=== PATIENT | female | born 1995 | race African-American/Black ===

== ENCOUNTER 2016-12-03 17:06 | Emergency (ER) | payer MEDICAID ==
[~2016-12-03] VITALS: Ht 167.6 cm; Wt 104.3 kg
[2016-12-03 17:06] VITALS: BP_SYST 135
--- NOTE | 2016-12-03 17:06 | NUR ---
Pt placed to ER bed 06. Report given to BRITTA Murphy.
--- NOTE | 2016-12-03 17:11 | NUR ---
Patient reports that she has been having pelvic pain with burning during urination and is having an outbreak of herpes. She reports that she saw one herpe lesion yesterday. Denies any pain. No other complaints/injuries per patient or as noted.
--- NOTE | 2016-12-03 17:11 | NUR ---
Dr. Lund at bedside.
[2016-12-03 17:31] LABS: COLOR,URINE YELLOW (YELLOW); GLUCOSE,URINE NEGATIVE (NEGATIVE); KETONES,URINE NEGATIVE (NEGATIVE); NITRITE, URINE NEGATIVE (NEGATIVE); PROTEIN URINE 1+ (NEGATIVE)
[2016-12-03 17:44] LABS: BLOOD, URINE TRACE (NEGATIVE)
[2016-12-03 17:45] LABS: BILIRUBIN,URINE NEGATIVE (NEGATIVE); CLARITY/URINE HAZY (CLEAR); LEUKOCYTE ESTERASE ,URINE TRACE (NEGATIVE)
[2016-12-03 17:46] LABS: BACTERIA,URINE FEW /HPF (None Seen); MUCUS,URINE 1+ /LPF (None Seen); RBC,URINE 0-3 /HPF (0-3); YEAST,URINE Few /HPF (None Seen)
--- NOTE | 2016-12-03 18:08 | NUR ---
Patient given written and verbal discharge instructions and verbalizes understanding. ER MD discussed with patient the results and treatment provided. Patient in stable condition. ID arm band removed. Rx of Acyclovir and macrobid given. Patient educated on pain management and to follow up with PMD in 2 days. Pain Scale 0/10 Opportunity for questions provided and answered.
== END 2016-12-03 18:08 | disposition home or self-care (01) ==
LOC: SED 17:06
DX: A60.00 Herpesviral infection of urogenital system, unspecified (principal); N39.0 Urinary tract infection, site not specified
CPT/HCPCS: 81000-TC; 99283

== ENCOUNTER 2018-07-03 08:43 | Emergency (ER) | payer MEDICAID ==
[~2018-07-03] VITALS: Ht 167.6 cm; Wt 86.2 kg
[2018-07-03 08:43] VITALS: BP_SYST 119
--- NOTE | 2018-07-03 08:43 | NUR ---
BROUGHT BACK TO BED #7 AND TRIAGED. REPORT GIVEN TO JEFFRY
--- NOTE | 2018-07-03 08:48 | NUR ---
Marti byrnes in [facility] - 07/03/18 at 0924 by [email or web address] Placed in room 7.
[2018-07-03] MEDS ORDERED: NACL 0.9% 1,000 ML IV ONE (08:50)
--- NOTE | 2018-07-03 08:50 | NUR ---
Pt presents to ER c/o nausea, vomiting, abdominal pain 8/10 on pain scale x 3 days. Pt reports hx of gastric reflux which she thought was causing her symptoms; however symptoms have not resolved after taking Nexium. Pt reports she is currently . Upon arrival to ER, pt denies chest pain or sob. Pt AOX4, speaking full sentences, ambulatory. Pt smells of marijuana but when asked if she smoked recently she denies. Pt also denies drinking ETOH.
--- NOTE | 2018-07-03 08:52 | NUR ---
ER Dr. Plummer at bedside examining patient.
--- NOTE | 2018-07-03 08:55 | NUR ---
# 20 gauge angiocath placed to LAC. Use of asceptic technique. Opsite placed over site. Blood return noted. Blood for lab drawn from site. Flushed with 10 cc of normal saline. No evidence of infiltration noted. Patient tolerated well.
[2018-07-03] MEDS ORDERED: ONDANSETRON HCL 4 MG/2 ML VIAL IVP ONE (09:00)
[2018-07-03] MEDS ORDERED: MORPHINE 4 MG/ML INJ. SYRINGE IVP ONE (09:00)
--- NOTE | 2018-07-03 09:19 | NUR ---
Pt medicated as ordered by ER Dr. Plummer. Pt tolerated well; will continue to monitor.
[2018-07-03 09:22] LABS: BASOPHILS # (AUTO) 0.1 K/uL (0.0-0.2); BASOPHILS % (AUTO) 0.5 % (0.0-2.0); EOSINOPHILS % (AUTO) 0.3 % (0.0-4.0); HEMATOCRIT 37.7 % (36-48); HEMOGLOBIN 12.3 g/dL (12.0-16.0); LYMPHOCYTES % (AUTO) 7.6 % (20.5-51.5); MEAN CORPUSCULAR HEMOGLOBIN 26 pg (27-31); MEAN CORPUSCULAR HGB CONC 33 % (32-36); MEAN CORPUSCULAR VOLUME 78 fL (79.0-98.0); MONOCYTES # (AUTO) 0.5 K/uL (0.0-1.0); MONOCYTES % (AUTO) 3.7 % (1.7-9.3); NEUTROPHILS # (AUTO) 11.7 K/uL (1.8-7.7); NEUTROPHILS % (AUTO) 87.9 % (40.0-70.0); PLATELET COUNT (AUTO) 281 K/uL (130-430); RED BLOOD CELL COUNT(AUTO) 4.82 MIL/uL (4.2-6.2); WHITE BLOOD COUNT (AUTO) 13.3 K/uL (4.8-10.8)
[2018-07-03 09:31] LABS: ANION GAP 11 (5-15); CALCIUM 9.1 mg/dL (8.4-11.0); CHLORIDE 101 mmol/L (98-107); CREATININE 0.71 mg/dL (0.55-1.30); GLUCOSE 109 mg/dL (70-99); POTASSIUM 3.6 mmol/L (3.5-5.1); SODIUM SERUM 138 mmol/L (136-145); UREA NITROGEN, BLOOD 10 mg/dL (8-21)
[2018-07-03 09:32] LABS: GFR AFRICAN AMERICAN 131 mL/min (>90)
[2018-07-03 09:34] LABS: PROTHROMBIN TIME 10.3 SECS (9.5-12.5)
[2018-07-03 09:51] LABS: BILIRUBIN,URINE NEGATIVE (NEGATIVE); CLARITY/URINE CLEAR (CLEAR); COLOR,URINE YELLOW (YELLOW); GLUCOSE,URINE NEGATIVE (NEGATIVE); KETONES,URINE TRACE (NEGATIVE); LEUKOCYTE ESTERASE ,URINE 1+ (NEGATIVE); NITRITE, URINE NEGATIVE (NEGATIVE); PROTEIN URINE TRACE (NEGATIVE); UROBILINOGEN,URINE 0.2 (0.2-1.0)
[2018-07-03 09:55] LABS: BLOOD, URINE TRACE (NEGATIVE)
[2018-07-03 10:03] LABS: BARBITURATE, URINE NEGATIVE (NEG <=200); BENZODIAZEPINE, URINE NEGATIVE (NEG <=150); CANNABINOID, URINE POSITIVE (NEG <=50); COCAINE, URINE NEGATIVE (NEG <=150); METHAMPHETAMINES SCREEN,URINE NEGATIVE (NEG <=500); OPIATE, URINE NEGATIVE (NEG <=100); PHENCYCLIDINE SCREEN,URINE NEGATIVE (NEG <=25); UR TRICYCLIC ANTIDEPRESSANTS NEGATIVE (NEG <=300); URINE AMPHETAMINE NEGATIVE (NEG <=500); URINE METHADONE NEGATIVE (NEG <=200); URINE OXYCODONE SCREEN NEGATIVE (NEG <=100); URINE PROPOXYPHENE SCREEN NEGATIVE (NEG <=300)
[2018-07-03 10:08] LABS: BACTERIA,URINE FEW /HPF (None Seen); MUCUS,URINE 1+ /LPF (None Seen)
[2018-07-03 10:12] LABS: TOTAL BILIRUBIN 0.3 mg/dL (0.0-1.0)
[2018-07-03 10:13] LABS: ALANINE AMINOTRANSFERASE 18 U/L (12-78); ALBUMIN 3.9 g/dL (3.4-4.8); ALCOHOL, BLOOD < 3 mg/dL (<10); AMYLASE 39 U/L (0-100); ASPARTATE AMINOTRANSFERASE 11 U/L (10-37); HCG,QUANTITATIVE 19039 mIU/ML (0-6); LIPASE 122 U/L (73-393)
--- NOTE | 2018-07-03 10:25 | NUR ---
Pt reports pain level 5/10 at this time and still c/o nausea. Dr. Plummer informed of situation.
[2018-07-03 11:55] VITALS: BP_SYST 121
--- NOTE | 2018-07-03 11:55 | NUR ---
Patient given written and verbal discharge instructions and verbalizes understanding. ER MD discussed with patient the results and treatment provided. Patient in stable condition. ID arm band removed. IV catheter removed intact and dressing applied, no active bleeding. Rx of Zofran, Macrobid, Tylenol given. Patient educated on pain management and to follow up with PMD. Pain Scale 3/10. Opportunity for questions provided and answered. Medication side effect fact sheet provided.
== END 2018-07-03 11:55 | disposition home or self-care (01) ==
LOC: SED 08:43
DX: O21.0 Mild hyperemesis gravidarum (principal); O23.41 Unspecified infection of urinary tract in pregnancy, first trimester; O46.91 Antepartum hemorrhage, unspecified, first trimester; O26.891 Other specified pregnancy related conditions, first trimester; F12.90 Cannabis use, unspecified, uncomplicated; Z3A.01 Less than 8 weeks gestation of pregnancy
CPT/HCPCS: 36415; 76805; 80053; 80307; 81000; 81025; 82150; 83605; 83690; 84702; 85025; 85610; 85730; 86900; 86901; 87040; 87086; 96361; 96374; 96375; 99284; G0482; J2270; J2405

== ENCOUNTER 2018-10-11 17:13 | Emergency (ER) | payer MEDICAID ==
[~2018-10-11] VITALS: Ht 170.2 cm; Wt 97.5 kg
[2018-10-11 17:21] VITALS: BP_SYST 106
[2018-10-11 19:03] LABS: INFLUENZA A&B ANTIGEN SCREEN NEGATIVE FOR A & B (NEGATIVE)
[2018-10-11 19:06] LABS: STREPTOCOCCUS A SCREEN (RAPID) POSITIVE (NEGATIVE)
[2018-10-11] MEDS ORDERED: IBUPROFEN 800 MG TABLET PO ONE (20:00)
[2018-10-11] MEDS ORDERED: AZITHROMYCIN 250 MG TABLET PO ONE (20:00)
[2018-10-11 20:10] VITALS: BP_SYST 106
== END 2018-10-11 20:10 | disposition home or self-care (01) ==
LOC: SED 17:13
DX: J02.0 Streptococcal pharyngitis (principal); R10.9 Unspecified abdominal pain; R68.83 Chills (without fever); Z88.0 Allergy status to penicillin
CPT/HCPCS: 86403; 86710; 99283; Q0144; 36415

== ENCOUNTER 2019-04-08 12:59 | Emergency (ER) | payer MEDICAID ==
[~2019-04-08] VITALS: Ht 167.6 cm; Wt 95.3 kg
[2019-04-08 13:00] VITALS: BP_SYST 123
[2019-04-08] MEDS ORDERED: NACL 0.9% 1,000 ML IV ONE (13:45)
[2019-04-08 14:06] LABS: BASOPHILS # (AUTO) 0.1 K/uL (0.0-0.2); BASOPHILS % (AUTO) 0.5 % (0.0-2.0); EOSINOPHILS # (AUTO) 0.1 K/uL (0.0-0.4); EOSINOPHILS % (AUTO) 0.4 % (0.0-4.0); HEMATOCRIT 37.6 % (36-48); HEMOGLOBIN 12.2 g/dL (12.0-16.0); LYMPHOCYTES # (AUTO) 1.6 K/uL (1.0-5.5); LYMPHOCYTES % (AUTO) 12.8 % (20.5-51.5); MEAN CORPUSCULAR HEMOGLOBIN 28 pg (27-31); MEAN CORPUSCULAR HGB CONC 33 % (32-36); MEAN CORPUSCULAR VOLUME 87 fL (79.0-98.0); MONOCYTES % (AUTO) 8.1 % (1.7-9.3); NEUTROPHILS # (AUTO) 9.8 K/uL (1.8-7.7); NEUTROPHILS % (AUTO) 78.2 % (40.0-70.0); PLATELET COUNT (AUTO) 212 K/uL (130-430); RED BLOOD CELL COUNT(AUTO) 4.33 MIL/uL (4.2-6.2); RED CELL DISTRIBUTION WIDTH 16.2 % (9.0-15.0); WHITE BLOOD COUNT (AUTO) 12.5 K/uL (4.8-10.8)
[2019-04-08 14:17] LABS: CALCIUM 8.7 mg/dL (8.4-11.0); CREATININE 0.6 mg/dL (0.55-1.30); POTASSIUM 3.5 mmol/L (3.5-5.1)
[2019-04-08 14:23] LABS: ALBUMIN 3.5 g/dL (3.4-4.8); TOTAL BILIRUBIN 0.3 mg/dL (0.0-1.0)
[2019-04-08 15:45] VITALS: BP_SYST 126
== END 2019-04-08 15:45 | disposition home or self-care (01) ==
LOC: SED 12:59
DX: O20.0 Threatened abortion (principal); Z3A.01 Less than 8 weeks gestation of pregnancy; Z88.0 Allergy status to penicillin
CPT/HCPCS: 36415; 76801; 80053; 81002; 81025; 84702; 85025; 96360; 99284; J7030

== ENCOUNTER 2019-05-04 10:30 | Emergency (ER) | payer MEDICAID ==
[~2019-05-04] VITALS: Ht 167.6 cm; Wt 95.3 kg
[2019-05-04 11:05] VITALS: BP_SYST 129
--- NOTE | 2019-05-04 11:27 | NUR ---
Patient to ER bed 4 to gown for evaluation. Side rails up. Report given to BRITTA Cardona.
--- NOTE | 2019-05-04 11:30 | NUR ---
Patient is awake, alert, and oriented x4. Patient reports nausea, vomiting, diarrhea, urinary urgency, headache with light sensitivity x 3-4 days. She states she is 12 weeks and unable to keep anyhing down and has been hydrating with pedialyte.
[2019-05-04] MEDS ORDERED: ONDANSETRON HCL 4 MG/2 ML VIAL IVP ONE (12:15)
[2019-05-04] MEDS ORDERED: NACL 0.9% 1,000 ML IV ONE (12:15)
--- NOTE | 2019-05-04 12:15 | NUR ---
ER Dr. Gonzalez at bedside examining patient.
[2019-05-04 12:39] LABS: CLARITY/URINE SLIGHTLY CLOUDY (CLEAR); COLOR,URINE YELLOW (YELLOW)
[2019-05-04 12:40] LABS: BILIRUBIN,URINE NEGATIVE (NEGATIVE); BLOOD, URINE 1+ (NEGATIVE); GLUCOSE,URINE NEGATIVE (NEGATIVE); KETONES,URINE NEGATIVE (NEGATIVE); LEUKOCYTE ESTERASE ,URINE NEGATIVE (NEGATIVE); NITRITE, URINE NEGATIVE (NEGATIVE); PROTEIN URINE NEGATIVE (NEGATIVE); UROBILINOGEN,URINE 0.2 (0.2-1.0)
--- NOTE | 2019-05-04 12:45 | NUR ---
Patient transported to radiology via wheelchair, accompanied by electronics technician apprentice.
[2019-05-04 13:05] LABS: BACTERIA,URINE FEW /HPF (None Seen)
--- NOTE | 2019-05-04 13:15 | NUR ---
Returned from radiology, back to [facility].
--- NOTE | 2019-05-04 13:15 | NUR ---
Marti byrnes in ED - 05/04/19 at 1325 by [email or web address] Returned from radiology, back to [facility].
[2019-05-04 13:32] LABS: BASOPHILS # (AUTO) 0.1 K/uL (0.0-0.2); BASOPHILS % (AUTO) 0.6 % (0.0-2.0); EOSINOPHILS % (AUTO) 0.2 % (0.0-4.0); HEMATOCRIT 37.1 % (36-48); HEMOGLOBIN 12.4 g/dL (12.0-16.0); LYMPHOCYTES # (AUTO) 1.1 K/uL (1.0-5.5); LYMPHOCYTES % (AUTO) 8.4 % (20.5-51.5); MEAN CORPUSCULAR HEMOGLOBIN 29 pg (27-31); MEAN CORPUSCULAR HGB CONC 33 % (32-36); MEAN CORPUSCULAR VOLUME 87 fL (79.0-98.0); MONOCYTES % (AUTO) 7.4 % (1.7-9.3); NEUTROPHILS # (AUTO) 10.8 K/uL (1.8-7.7); NEUTROPHILS % (AUTO) 83.4 % (40.0-70.0); PLATELET COUNT (AUTO) 206 K/uL (130-430); RED BLOOD CELL COUNT(AUTO) 4.26 MIL/uL (4.2-6.2); RED CELL DISTRIBUTION WIDTH 16.3 % (9.0-15.0)
[2019-05-04 13:45] LABS: CALCIUM 9.4 mg/dL (8.4-11.0); CREATININE 0.57 mg/dL (0.55-1.30); POTASSIUM 3.5 mmol/L (3.5-5.1)
[2019-05-04 13:51] LABS: ALBUMIN 3.7 g/dL (3.4-4.8); TOTAL BILIRUBIN 0.3 mg/dL (0.0-1.0)
--- NOTE | 2019-05-04 15:56 | NUR ---
Patient given written and verbal discharge instructions and verbalizes understanding. ER MD Gonzalez discussed with patient the results and treatment provided. Patient in stable condition. ID arm band removed. IV catheter removed intact and dressing applied, no active bleeding. No Rx given. Patient educated on pain management and to follow up with PMD. Pain Scale 0. Opportunity for questions provided and answered. Medication side effect fact sheet provided.
[2019-05-04 15:57] VITALS: BP_SYST 131
== END 2019-05-04 15:57 | disposition home or self-care (01) ==
LOC: SED 10:30
DX: O03.9 Complete or unspecified spontaneous abortion without complication (principal); O23.41 Unspecified infection of urinary tract in pregnancy, first trimester; O26.891 Other specified pregnancy related conditions, first trimester; K52.9 Noninfective gastroenteritis and colitis, unspecified; Z88.0 Allergy status to penicillin; Z3A.12 12 weeks gestation of pregnancy
CPT/HCPCS: 36415; 76801; 80053; 81000; 83690; 84702; 85025; 96361; 96374; 99284; J2405; J7030

== ENCOUNTER 2019-12-07 20:51 | Emergency (ER) | payer MEDICAID ==
[~2019-12-07] VITALS: Ht 167.6 cm; Wt 95.3 kg
[2019-12-07 20:55] VITALS: BP_SYST 152
[2019-12-07] MEDS ORDERED: ONDANSETRON HCL 4 MG/2 ML VIAL IVP ONE (21:15)
[2019-12-07] MEDS ORDERED: NACL 0.9% 1,000 ML IV ONE (21:15)
[2019-12-07 21:34] LABS: BASOPHILS # (AUTO) 0.1 K/uL (0.0-0.2); BASOPHILS % (AUTO) 0.5 % (0.0-2.0); EOSINOPHILS % (AUTO) 0.2 % (0.0-4.0); HEMATOCRIT 38.4 % (36-48); HEMOGLOBIN 12.4 g/dL (12.0-16.0); LYMPHOCYTES # (AUTO) 1.6 K/uL (1.0-5.5); LYMPHOCYTES % (AUTO) 10.1 % (20.5-51.5); MEAN CORPUSCULAR HEMOGLOBIN 28 pg (27-31); MEAN CORPUSCULAR HGB CONC 32 % (32-36); MEAN CORPUSCULAR VOLUME 87 fL (79.0-98.0); MONOCYTES # (AUTO) 0.8 K/uL (0.0-1.0); MONOCYTES % (AUTO) 5.2 % (1.7-9.3); NEUTROPHILS # (AUTO) 13.1 K/uL (1.8-7.7); PLATELET COUNT (AUTO) 275 K/uL (130-430); RED BLOOD CELL COUNT(AUTO) 4.41 MIL/uL (4.2-6.2); RED CELL DISTRIBUTION WIDTH 15.4 % (9.0-15.0); WHITE BLOOD COUNT (AUTO) 15.6 K/uL (4.8-10.8)
[2019-12-07 21:52] LABS: CALCIUM 8.6 mg/dL (8.4-11.0); CREATININE 0.91 mg/dL (0.55-1.30); POTASSIUM 3.4 mmol/L (3.5-5.1)
[2019-12-07 22:03] LABS: ALBUMIN 4.2 g/dL (3.4-4.8); TOTAL BILIRUBIN 0.3 mg/dL (0.0-1.0)
[2019-12-07] MEDS ORDERED: METOCLOPRAMIDE HCL 10 MG/2 ML VIAL IVP ONE (23:00)
[2019-12-07] MEDS ORDERED: KETOROLAC TROMETHAMINE 30 MG VIAL IVP ONE (23:00)
[2019-12-07] MEDS ORDERED: PROCHLORPERAZINE EDISYLATE 10 MG/2 ML VIAL IVP ONE (23:45)
[2019-12-08 00:05] VITALS: BP_SYST 122
== END 2019-12-08 00:05 | disposition home or self-care (01) ==
LOC: SED 20:51
DX: K52.9 Noninfective gastroenteritis and colitis, unspecified (principal); R11.2 Nausea with vomiting, unspecified; Z88.0 Allergy status to penicillin
CPT/HCPCS: 36415; 74176; 80053; 83690; 84702; 85025; 96361; 96374; 96375; 99285; J0780; J1885; J2405; J2765; J7030

== ENCOUNTER 2019-12-08 06:27 | Emergency (ER) | payer MEDICAID ==
[~2019-12-08] VITALS: Ht 167.6 cm; Wt 95.3 kg
[2019-12-08 06:27] VITALS: BP_SYST 128
[2019-12-08] MEDS ORDERED: ONDANSETRON HCL 4 MG/2 ML VIAL IVP ONE (07:00)
[2019-12-08] MEDS ORDERED: MORPHINE 4 MG/ML INJ. SYRINGE IVP ONE ×2 (07:00→10:00)
[2019-12-08] MEDS ORDERED: NACL 0.9% 1,000 ML IV ONE (07:00)
[2019-12-08 10:00] VITALS: BP_SYST 108
== END 2019-12-08 10:00 | disposition short-term general hospital (02) ==
LOC: SED 06:27
DX: Z03.818 Encounter for observation for suspected exposure to other biological agents ruled out (principal); K52.9 Noninfective gastroenteritis and colitis, unspecified; F12.90 Cannabis use, unspecified, uncomplicated; Z88.0 Allergy status to penicillin
CPT/HCPCS: 96361; 96374; 96375; 96376; 99285; J2270; J2405; J7030; U0003

== ENCOUNTER 2020-03-27 19:25 | Emergency (ER) | payer MEDICAID ==
[~2020-03-27] VITALS: Ht 172.7 cm; Wt 86.2 kg
--- NOTE | 2020-03-27 19:28 | NUR ---
Patient to ER bed 3 to gown for evaluation. Side rails up.
[2020-03-27 19:30] VITALS: BP_SYST 138
--- NOTE | 2020-03-27 19:41 | NUR ---
Pt BIBA from Home C/O N/V x 2 with acute epigastric abd pain 8 since 1400 today. Has MRI 2 weeks ago confirmed gallstone. VSS no s/s of acute distress No other complaints noted at this time Resting on [employer] rails up
--- NOTE | 2020-03-27 20:01 | NUR ---
Dr. Gonzalez bedside for pt eval
[2020-03-27] MEDS: MORPHINE 2 MG/ML INJ. SYRINGE IVP ONE (20:29)
[2020-03-27] MEDS: ONDANSETRON HCL 4 MG/2 ML VIAL IVP ONE ×2 (20:29→22:29)
[2020-03-27 20:36] LABS: BASOPHILS # (AUTO) 0.1 K/uL (0.0-0.2); BASOPHILS % (AUTO) 0.4 % (0.0-2.0); HEMOGLOBIN 12.8 g/dL (12.0-16.0); LYMPHOCYTES # (AUTO) 0.9 K/uL (1.0-5.5); LYMPHOCYTES % (AUTO) 5.6 % (20.5-51.5); MEAN CORPUSCULAR HEMOGLOBIN 29 pg (27-31); MEAN CORPUSCULAR HGB CONC 33 % (32-36); MEAN CORPUSCULAR VOLUME 87 fL (79.0-98.0); MONOCYTES # (AUTO) 0.4 K/uL (0.0-1.0); MONOCYTES % (AUTO) 2.3 % (1.7-9.3); NEUTROPHILS % (AUTO) 91.7 % (40.0-70.0); PLATELET COUNT (AUTO) 279 K/uL (130-430); RED BLOOD CELL COUNT(AUTO) 4.48 MIL/uL (4.2-6.2); RED CELL DISTRIBUTION WIDTH 16.7 % (9.0-15.0); WHITE BLOOD COUNT (AUTO) 16.4 K/uL (4.8-10.8)
[2020-03-27 20:45] LABS: CREATININE 0.8 mg/dL (0.55-1.30); POTASSIUM 3.6 mmol/L (3.5-5.1)
--- NOTE | 2020-03-27 20:46 | NUR ---
Radiology / Portable US Study bedside, pt in stable condition
[2020-03-27 20:48] LABS: BILIRUBIN,URINE NEGATIVE (NEGATIVE); BLOOD, URINE NEGATIVE (NEGATIVE); COLOR,URINE YELLOW (YELLOW); GLUCOSE,URINE NEGATIVE (NEGATIVE); KETONES,URINE 1+ (NEGATIVE); LEUKOCYTE ESTERASE ,URINE NEGATIVE (NEGATIVE); NITRITE, URINE NEGATIVE (NEGATIVE); PROTEIN URINE NEGATIVE (NEGATIVE); UROBILINOGEN,URINE 0.2 (0.2-1.0)
[2020-03-27 20:50] LABS: ALBUMIN 4.4 g/dL (3.4-4.8); TOTAL BILIRUBIN 0.2 mg/dL (0.0-1.0)
[2020-03-27 20:54] LABS: CLARITY/URINE HAZY (CLEAR)
[2020-03-27 20:56] LABS: BACTERIA,URINE FEW /HPF (None Seen); MUCUS,URINE None Seen /LPF (None Seen); RBC,URINE NONE SEEN /HPF (0-3); URINE AMORPHOUS PHOSPHATES 3+ /HPF (None Seen); WBC,URINE 0-3 /HPF (0-3)
--- NOTE | 2020-03-27 21:16 | NUR ---
Portable US Study complete, well tolerated
[2020-03-27] MEDS ORDERED: ONDANSETRON HCL 4 MG/2 ML VIAL IVP PRN (22:15)
[2020-03-27] MEDS ORDERED: MORPHINE 4 MG/ML INJ. SYRINGE IVP PRN (22:15)
[2020-03-27] MEDS ORDERED: MORPHINE 2 MG/ML INJ. SYRINGE IVP PRN (22:15)
[2020-03-27] MEDS: MORPHINE 4 MG/ML INJ. SYRINGE IVP ONE (22:28)
--- NOTE | 2020-03-27 22:31 | NUR ---
VSS no s/s of acute distress Resting on gurney rails up
[2020-03-27] MEDS ORDERED: D5/0.45 NS 1,000 ML IV SCH (23:00)
--- NOTE | 2020-03-28 | NUR ---
Pt remains in stable condition, still feeling a bit N/V, Dr. Gonzalez aware
--- NOTE | 2020-03-28 00:51 | NUR ---
Dr. Gonzalez bedside for pt update
[2020-03-28 01:07] VITALS: BP_SYST 138
--- NOTE | 2020-03-28 01:07 | NUR ---
Patient to be transferred to [facility]. Is being transferred due to higher level of care. Receiving facility has accepting physician and available space. ER physician has signed transfer form. Patient or responsible libertarian has agreed to transfer and signed form. Patient belongings inventoried and will be sent with patient. Copy of nursing notes, lab reports, EKG, Physicians Orders and X-rays to be sent with patient. Report called to Geo at receiving facility. Receiving physician is Dr. Flores. [facility] ambulance service has been called for transfer.
[2020-03-28] MEDS: MORPHINE 4 MG/ML INJ. SYRINGE IVP ONE (01:21)
[2020-03-28] MEDS: ONDANSETRON HCL 4 MG/2 ML VIAL IVP ONE (01:22)
== END 2020-03-28 01:07 | disposition short-term general hospital (02) ==
LOC: SED 19:25
DX: K80.20 Calculus of gallbladder without cholecystitis without obstruction (principal); R10.9 Unspecified abdominal pain; Z88.0 Allergy status to penicillin
CPT/HCPCS: 36415; 76700; 80053; 81000; 81025; 82150; 83690; 85025; 96374; 96375; 96376; 99285; J2270 ×3; J2405 ×2

== ENCOUNTER 2020-03-30 14:38 | Emergency (ER) | payer MEDICAID ==
[~2020-03-30] VITALS: Ht 172.7 cm; Wt 86.2 kg
[2020-03-30 14:38] VITALS: BP_SYST 139
--- NOTE | 2020-03-30 14:38 | NUR ---
Patient to ER bed 2 to gown for evaluation. Side rails up. Report given to BRITTA Plata.
--- NOTE | 2020-03-30 14:42 | NUR ---
Patient arrived in the ED c/o abdominal pain, nausea and vomiting for the last 5 days. Denied any chest pain or shortness of breath. Denied any fevers and chills. Patient is alert and oriented x4, respirations even and unlabored, speaking in full sentences, and ambulating with a steady gait. VSS, pain level 10/10. Informed of the approximate wait time. Instructed to notify ED staff for any changes in condition or worsening of symptoms while waiting to be seen by an ED provider. Patient verbalized understanding.
--- NOTE | 2020-03-30 14:45 | NUR ---
ER Dr. Fox at bedside examining patient.
[2020-03-30] MEDS ORDERED: CIPR-260 PO (14:52)
[2020-03-30] MEDS ORDERED: ONDA4TAB11 SL (14:52)
[2020-03-30] MEDS ORDERED: ACET325T53 PO (14:52)
[2020-03-30] MEDS ORDERED: NACL 0.9% 1,000 ML IV ONE (14:55)
--- NOTE | 2020-03-30 14:55 | NUR ---
Medication reconciliation completed with information provided by patient. Any prior medication reconciliation on file was reviewed and corrected.
[2020-03-30] MEDS ORDERED: KETOROLAC TROMETHAMINE 30 MG VIAL IVP ONE (15:00)
[2020-03-30] MEDS ORDERED: ONDANSETRON HCL 4 MG/2 ML VIAL IVP ONE (15:00)
[2020-03-30 15:19] LABS: BILIRUBIN,URINE NEGATIVE (NEGATIVE); CLARITY/URINE CLOUDY (CLEAR); COLOR,URINE YELLOW (YELLOW); GLUCOSE,URINE NEGATIVE (NEGATIVE); KETONES,URINE 2+ (NEGATIVE); LEUKOCYTE ESTERASE ,URINE NEGATIVE (NEGATIVE); NITRITE, URINE NEGATIVE (NEGATIVE); PROTEIN URINE 1+ (NEGATIVE)
[2020-03-30 15:22] LABS: BASOPHILS # (AUTO) 0.1 K/uL (0.0-0.2); BASOPHILS % (AUTO) 0.7 % (0.0-2.0); HEMOGLOBIN 12.6 g/dL (12.0-16.0); LYMPHOCYTES # (AUTO) 1.2 K/uL (1.0-5.5); LYMPHOCYTES % (AUTO) 10.9 % (20.5-51.5); MEAN CORPUSCULAR HEMOGLOBIN 29 pg (27-31); MEAN CORPUSCULAR HGB CONC 33 % (32-36); MEAN CORPUSCULAR VOLUME 86 fL (79.0-98.0); MONOCYTES # (AUTO) 0.5 K/uL (0.0-1.0); MONOCYTES % (AUTO) 4.2 % (1.7-9.3); NEUTROPHILS % (AUTO) 84.2 % (40.0-70.0); PLATELET COUNT (AUTO) 244 K/uL (130-430); RED BLOOD CELL COUNT(AUTO) 4.43 MIL/uL (4.2-6.2); RED CELL DISTRIBUTION WIDTH 16.4 % (9.0-15.0); WHITE BLOOD COUNT (AUTO) 10.7 K/uL (4.8-10.8)
--- NOTE | 2020-03-30 15:23 | NUR ---
# 20 gauge angiocath placed to lac. Use of asceptic technique. Opsite placed over site. Blood return noted. Blood for lab drawn from site. Flushed with 10 cc of normal saline. No evidence of infiltration noted. Patient tolerated well.
[2020-03-30 15:43] LABS: CALCIUM 8.8 mg/dL (8.4-11.0); CREATININE 0.88 mg/dL (0.55-1.30); POTASSIUM 3.3 mmol/L (3.5-5.1)
[2020-03-30 15:45] LABS: BLOOD, URINE TRACE (NEGATIVE)
[2020-03-30 15:48] LABS: TOTAL BILIRUBIN 0.4 mg/dL (0.0-1.0)
[2020-03-30 15:49] LABS: BACTERIA,URINE None Seen /HPF (None Seen); WBC,URINE NONE SEEN /HPF (0-3); YEAST,URINE None Seen /HPF (None Seen)
[2020-03-30] MEDS ORDERED: DIPHENHYDRAMINE INJ 50 MG/ML VIAL IVP ONE (16:00)
[2020-03-30] MEDS ORDERED: PROCHLORPERAZINE EDISYLATE 10 MG/2 ML VIAL IVP ONE (16:00)
[2020-03-30] MEDS ORDERED: MORPHINE 4 MG/ML INJ. SYRINGE IVP ONE ×3 (16:00→21:45)
[2020-03-30] MEDS ORDERED: PROMETHAZINE INJ.Non-Formulary 25 MG/ML AMP IVP ONE (16:00)
--- NOTE | 2020-03-30 17:51 | NUR ---
Patient's mother took patient's home medication.
--- NOTE | 2020-03-30 18:11 | NUR ---
Report called to [facility], spoke with BRITTA Patrick.
--- NOTE | 2020-03-30 19:07 | NUR ---
Care of Pt endorsed to BRITTA Shah. Pt currently resting in bed, no distress noted
--- NOTE | 2020-03-30 19:18 | NUR ---
Report received from BRITTA Plata for continuation care.
[2020-03-30 22:10] VITALS: BP_SYST 106
--- NOTE | 2020-03-30 22:10 | NUR ---
Patient to be transferred to [facility]. Is being transferred due to higher level of care. Receiving facility has accepting physician and available space. ER physician has signed transfer form. Patient or responsible constitution party has agreed to transfer and signed form. Patient belongings inventoried and will be sent with patient. Copy of nursing notes, lab reports, EKG, Physicians Orders and X-rays to be sent with patient. Report called to JAY BY DAMIAN CLINE RN at receiving facility. Receiving physician is Dr CHRISTIANSON. [facility] ambulance service has been called for transfer.
== END 2020-03-30 22:10 | disposition short-term general hospital (02) ==
LOC: SED 14:38
DX: R10.11 Right upper quadrant pain (principal); R11.2 Nausea with vomiting, unspecified; Z88.0 Allergy status to penicillin
CPT/HCPCS: 36415; 80053; 81000; 83690; 85025; 96361; 96374; 96375; 96376; 99285; J0780; J1200; J1885; J2270; J2405; J7030; J2550

== ENCOUNTER 2020-04-02 05:10 | Emergency (ER) | payer MEDICAID ==
[~2020-04-02] VITALS: Ht 172.7 cm; Wt 86.2 kg
[~2020-04-02 05:10] MED LIST: ACET325T53 PO; CIPR-260 PO; ONDA4TAB11 SL
[2020-04-02 05:15] VITALS: BP_SYST 145
[2020-04-02] MEDS ORDERED: NACL 0.9% 1,000 ML IV ONE (05:26)
[2020-04-02] MEDS ORDERED: MORPHINE 4 MG/ML INJ. SYRINGE IVP ONE ×2 (05:30→08:00)
[2020-04-02] MEDS ORDERED: DIPHENHYDRAMINE INJ 50 MG/ML VIAL IVP ONE (05:30)
[2020-04-02] MEDS ORDERED: PROCHLORPERAZINE EDISYLATE 10 MG/2 ML VIAL IVP ONE (05:30)
[2020-04-02 06:26] LABS: BASOPHILS # (AUTO) 0.1 K/uL (0.0-0.2); BASOPHILS % (AUTO) 0.6 % (0.0-2.0); EOSINOPHILS % (AUTO) 0.1 % (0.0-4.0); HEMOGLOBIN 12.7 g/dL (12.0-16.0); LYMPHOCYTES # (AUTO) 1.3 K/uL (1.0-5.5); LYMPHOCYTES % (AUTO) 7.3 % (20.5-51.5); MEAN CORPUSCULAR HEMOGLOBIN 28 pg (27-31); MEAN CORPUSCULAR HGB CONC 33 % (32-36); MEAN CORPUSCULAR VOLUME 86 fL (79.0-98.0); MONOCYTES # (AUTO) 1.3 K/uL (0.0-1.0); MONOCYTES % (AUTO) 7.2 % (1.7-9.3); NEUTROPHILS # (AUTO) 14.9 K/uL (1.8-7.7); NEUTROPHILS % (AUTO) 84.8 % (40.0-70.0); PLATELET COUNT (AUTO) 238 K/uL (130-430); RED BLOOD CELL COUNT(AUTO) 4.51 MIL/uL (4.2-6.2); RED CELL DISTRIBUTION WIDTH 16.6 % (9.0-15.0); WHITE BLOOD COUNT (AUTO) 17.5 K/uL (4.8-10.8)
[2020-04-02 06:40] LABS: CALCIUM 8.8 mg/dL (8.4-11.0); CREATININE 0.9 mg/dL (0.55-1.30); POTASSIUM 3.7 mmol/L (3.5-5.1)
[2020-04-02 06:46] LABS: TOTAL BILIRUBIN 0.2 mg/dL (0.0-1.0)
[2020-04-02] MEDS ORDERED: METOCLOPRAMIDE HCL 10 MG/2 ML VIAL IVP ONE (08:00)
[2020-04-02] MEDS ORDERED: HALOPERIDOL LACTATE 5 MG/ML VIAL IVP ONE (12:15)
[2020-04-02 13:54] VITALS: BP_SYST 126
[2020-04-02] MEDS ORDERED: KETOROLAC TROMETHAMINE 30 MG VIAL IVP ONE (14:15)
== END 2020-04-02 14:02 | disposition short-term general hospital (02) ==
LOC: SED 05:10
DX: R10.11 Right upper quadrant pain (principal); Z88.0 Allergy status to penicillin; Z90.49 Acquired absence of other specified parts of digestive tract
CPT/HCPCS: 36415; 74176; 80053; 81025; 83690; 85025; 96361; 96374; 96375; 96376; 99285; J0780; J1200; J1630; J1885; J2270; J2765; J7030

== ENCOUNTER 2020-04-04 05:12 | Emergency (ER) | payer MEDICAID ==
[~2020-04-04] VITALS: Ht 172.7 cm; Wt 86.2 kg
[2020-04-04 05:16] VITALS: BP_SYST 136
[2020-04-04] MEDS ORDERED: NACL 0.9% 1,000 ML IV ONE (06:00)
[2020-04-04] MEDS ORDERED: MORPHINE 4 MG/ML INJ. SYRINGE IVP ONE ×2 (06:00→07:00)
[2020-04-04] MEDS ORDERED: ONDANSETRON HCL 4 MG/2 ML VIAL IVP ONE ×2 (06:00→07:00)
[2020-04-04 06:50] LABS: BASOPHILS % (AUTO) 0.2 % (0.0-2.0); EOSINOPHILS # (AUTO) 0.1 K/uL (0.0-0.4); EOSINOPHILS % (AUTO) 0.6 % (0.0-4.0); HEMATOCRIT 37.3 % (36-48); LYMPHOCYTES # (AUTO) 0.6 K/uL (1.0-5.5); MEAN CORPUSCULAR HEMOGLOBIN 28 pg (27-31); MEAN CORPUSCULAR HGB CONC 32 % (32-36); MEAN CORPUSCULAR VOLUME 87 fL (79.0-98.0); MONOCYTES # (AUTO) 0.6 K/uL (0.0-1.0); MONOCYTES % (AUTO) 3.9 % (1.7-9.3); NEUTROPHILS # (AUTO) 14.5 K/uL (1.8-7.7); NEUTROPHILS % (AUTO) 91.3 % (40.0-70.0); PLATELET COUNT (AUTO) 208 K/uL (130-430); RED BLOOD CELL COUNT(AUTO) 4.28 MIL/uL (4.2-6.2); RED CELL DISTRIBUTION WIDTH 16.5 % (9.0-15.0); WHITE BLOOD COUNT (AUTO) 15.9 K/uL (4.8-10.8)
[2020-04-04 07:14] LABS: CALCIUM 8.7 mg/dL (8.4-11.0); CREATININE 0.76 mg/dL (0.55-1.30); POTASSIUM 3.4 mmol/L (3.5-5.1)
[2020-04-04 07:20] LABS: ALBUMIN 3.9 g/dL (3.4-4.8); TOTAL BILIRUBIN 0.3 mg/dL (0.0-1.0)
[2020-04-04 08:40] LABS: BILIRUBIN,URINE NEGATIVE (NEGATIVE); BLOOD, URINE NEGATIVE (NEGATIVE); CLARITY/URINE CLOUDY (CLEAR); COLOR,URINE YELLOW (YELLOW); GLUCOSE,URINE NEGATIVE (NEGATIVE); KETONES,URINE 1+ (NEGATIVE); LEUKOCYTE ESTERASE ,URINE NEGATIVE (NEGATIVE); NITRITE, URINE NEGATIVE (NEGATIVE); PH,URINE 8.5 (5.0-8.0); PROTEIN URINE NEGATIVE (NEGATIVE); UROBILINOGEN,URINE 0.2 (0.2-1.0)
[2020-04-04 09:30] VITALS: BP_SYST 134
[2020-04-04 09:33] LABS: BACTERIA,URINE None Seen /HPF (None Seen); RBC,URINE NONE SEEN /HPF (0-3); WBC,URINE NONE SEEN /HPF (0-3)
[2020-04-04 09:34] LABS: URINE AMORPHOUS PHOSPHATES 3+ /HPF (None Seen)
== END 2020-04-04 09:30 | disposition home or self-care (01) ==
LOC: SED 05:12
DX: R10.9 Unspecified abdominal pain (principal); Z90.49 Acquired absence of other specified parts of digestive tract; Z88.0 Allergy status to penicillin; Z79.899 Other long term (current) drug therapy
CPT/HCPCS: 36415; 74176; 80053; 81000; 81025; 85025; 96374; 96375; 96376; 99284; J2270; J2405; J7030

== ENCOUNTER 2022-05-09 03:32 | Emergency (ER) | payer MEDICAID ==
[~2022-05-09] VITALS: Ht 170.2 cm; Wt 99.8 kg
[~2022-05-09 03:32] MED LIST changes: +SULF1TAB48 PO; +VALA10002 PO
[2022-05-09 04:25] VITALS: BP_SYST 105
[2022-05-09] MEDS ORDERED: KETOROLAC TROMETHAMINE 30 MG VIAL IVP ONE ×2 (06:00→07:30)
--- NOTE | 2022-05-09 07:16 | NUR ---
Patient to ER bed 02 to gown for evaluation. Side rails up. Report received from ANDRIA Chowdhury.
--- NOTE | 2022-05-09 07:30 | NUR ---
FARIBA Morton at bedside examining patient.
--- NOTE | 2022-05-09 07:30 | NUR ---
RECEIVED PT FROM NOC SHIFT. PT C/O BILATERAL HAND DECREASED ROM. PT DENIES INJURY.
[2022-05-09] MEDS ORDERED: NACL 0.9% 1,000 ML IV ONE (07:45)
[2022-05-09 07:50] LABS: BASOPHILS % (AUTO) 0.7 % (0.0-2.0); EOSINOPHILS # (AUTO) 0.2 K/uL (0.0-0.4); EOSINOPHILS % (AUTO) 2.6 % (0.0-4.0); HEMATOCRIT 33.9 % (36-48); HEMOGLOBIN 11.2 g/dL (12.0-16.0); LYMPHOCYTES # (AUTO) 1.5 K/uL (1.0-5.5); LYMPHOCYTES % (AUTO) 21.9 % (20.5-51.5); MEAN CORPUSCULAR HEMOGLOBIN 27 pg (27-31); MEAN CORPUSCULAR HGB CONC 33 % (32-36); MEAN CORPUSCULAR VOLUME 82 fL (79.0-98.0); MONOCYTES # (AUTO) 0.5 K/uL (0.0-1.0); MONOCYTES % (AUTO) 7.3 % (1.7-9.3); NEUTROPHILS # (AUTO) 4.6 K/uL (1.8-7.7); NEUTROPHILS % (AUTO) 67.5 % (40.0-70.0); PLATELET COUNT (AUTO) 240 K/uL (130-430); RED BLOOD CELL COUNT(AUTO) 4.13 MIL/uL (4.2-6.2); RED CELL DISTRIBUTION WIDTH 15.7 % (9.0-15.0); WHITE BLOOD COUNT (AUTO) 6.7 K/uL (4.8-10.8)
[2022-05-09 07:56] LABS: CALCIUM 8.4 mg/dL (8.4-11.0); CREATININE 0.7 mg/dL (0.55-1.30)
--- NOTE | 2022-05-09 07:59 | NUR ---
Pt bib self from home /CC joint inflammation. bilateral hands excruciating 9/10 pain. No Past MHX Pt skin intact <3 sec cap refill. Pulses present. aaox3.
--- NOTE | 2022-05-09 08:00 | NUR ---
# 22 gauge angiocath placed to LFA. Use of asceptic technique. Opsite placed over site. Blood return noted. Flushed with 10 cc of normal saline. No evidence of infiltration noted. Patient tolerated well.
[2022-05-09 08:04] LABS: ALBUMIN 3.2 g/dL (3.4-4.8); C-REACTIVE PROTEIN QUANT 0.2 mg/dL (0-0.5)
[2022-05-09 08:06] LABS: TOTAL BILIRUBIN 0.1 mg/dL (0.0-1.0)
[2022-05-09] MEDS ORDERED: HYDROcodone/ACETAMIN 5-325 MG TAB (NORCO/ VICODIN) PO ONE (09:00)
[2022-05-09] MEDS ORDERED: TRAM50TA PO (09:10)
[2022-05-09] MEDS ORDERED: IBUP-1969 PO ×2 (09:10→09:15)
[2022-05-09] MEDS ORDERED: PEPTO PO ×2 (09:13)
[2022-05-09] MEDS ORDERED: ONDA-8 TL ×2 (09:14)
[2022-05-09 09:24] LABS: ERYTHROCYTE SEDIMENTATION RATE 16 MM/HR (0-20)
--- NOTE | 2022-05-09 09:33 | NUR ---
Patient given written and verbal discharge instructions and verbalizes understanding. ER Dr. Mazin JIMENEZ discussed with patient the results and treatment provided. Patient in stable condition. ID arm band removed. IV catheter removed intact and dressing applied, no active bleeding. Rx of Ibuprofen and Tramadol given. Patient educated on pain management and to follow up with PMD. Pain Scale 4/10. Opportunity for questions provided and answered. Medication side effect fact sheet provided.
[2022-05-09 09:34] VITALS: BP_SYST 126
== END 2022-05-09 09:34 | disposition home or self-care (01) ==
LOC: SED 03:32
DX: M79.642 Pain in left hand (principal); M79.641 Pain in right hand; Z79.899 Other long term (current) drug therapy
CPT/HCPCS: 99283; 96374; 96361; 80053; 83735; 85025; 85651; 86140; 36415; J1885; J7030

== ENCOUNTER 2024-01-08 10:06 | Emergency (ER) | payer MEDICAID ==
[~2024-01-08] VITALS: Ht 170.2 cm; Wt 99.8 kg
[~2024-01-08 10:06] MED LIST changes: +IBUP-1969 PO; +TRAM50TA PO
[2024-01-08 10:30] VITALS: BP_SYST 115; PULSE 88; RESP 18; TEMP 98.3; O2SAT 98
[2024-01-08 11:32] LABS: BASOPHILS % (AUTO) 0.4 % (0.0-2.0); EOSINOPHILS # (AUTO) 0.1 K/uL (0.0-0.4); EOSINOPHILS % (AUTO) 0.6 % (0.0-4.0); HEMATOCRIT 39.7 % (36-48); HEMOGLOBIN 12.9 g/dL (12.0-16.0); LYMPHOCYTES # (AUTO) 1.6 K/uL (1.0-5.5); LYMPHOCYTES % (AUTO) 17.8 % (20.5-51.5); MEAN CORPUSCULAR HEMOGLOBIN 29 pg (27-31); MEAN CORPUSCULAR HGB CONC 33 % (32-36); MEAN CORPUSCULAR VOLUME 87 fL (79.0-98.0); MONOCYTES # (AUTO) 0.7 K/uL (0.0-1.0); MONOCYTES % (AUTO) 7.3 % (1.7-9.3); NEUTROPHILS # (AUTO) 6.8 K/uL (1.8-7.7); NEUTROPHILS % (AUTO) 73.9 % (40.0-70.0); PLATELET COUNT (AUTO) 246 K/uL (130-430); RED BLOOD CELL COUNT(AUTO) 4.54 MIL/uL (4.2-6.2); RED CELL DISTRIBUTION WIDTH 15.9 % (9.0-15.0); WHITE BLOOD COUNT (AUTO) 9.2 K/uL (4.8-10.8)
[2024-01-08 11:33] LABS: BILIRUBIN,URINE NEGATIVE (NEGATIVE); BLOOD, URINE 1+ (NEGATIVE); CLARITY/URINE CLEAR (CLEAR); COLOR,URINE YELLOW (YELLOW); GLUCOSE,URINE NEGATIVE (NEGATIVE); KETONES,URINE NEGATIVE (NEGATIVE); LEUKOCYTE ESTERASE ,URINE NEGATIVE (NEGATIVE); NITRITE, URINE NEGATIVE (NEGATIVE); PROTEIN URINE NEGATIVE (NEGATIVE); UROBILINOGEN,URINE 0.2 (0.2-1.0)
[2024-01-08 11:34] LABS: BACTERIA,URINE RARE /HPF (None Seen); MUCUS,URINE 2+ /LPF (None Seen); WBC,URINE 0-3 /HPF (0-3)
[2024-01-08 12:19] LABS: ALBUMIN 3.6 g/dL (3.4-4.8); BILIRUBIN,DIRECT 0.1 mg/dL (0.0-0.3); CALCIUM 8.7 mg/dL (8.4-11.0); CREATININE 0.72 mg/dL (0.55-1.30); POTASSIUM 3.7 mmol/L (3.5-5.1); TOTAL BILIRUBIN 0.2 mg/dL (0.0-1.0); TOTAL PROTEIN, SERUM 7.3 g/dL (6.4-8.3)
[2024-01-08 13:02] VITALS: BP_SYST 115; PULSE 88; RESP 18; TEMP 98.3; O2SAT 98
== END 2024-01-08 13:01 | disposition home or self-care (01) ==
LOC: SED 10:06
DX: N93.9 Abnormal uterine and vaginal bleeding, unspecified (principal); R93.89 Abnormal findings on diagnostic imaging of other specified body structures; R53.1 Weakness; M79.10 Myalgia, unspecified site; Z88.0 Allergy status to penicillin
CPT/HCPCS: 99285; 74177; 80076; 80048; 81001; 85025; 36415; 93005; 81025; 81000; 81015; Q9967

== ENCOUNTER 2024-03-11 18:03 | Emergency (ER) | payer MEDICAID ==
[~2024-03-11] VITALS: Ht 165.1 cm; Wt 99.8 kg
[2024-03-11 18:15] VITALS: BP_SYST 137; PULSE 121; RESP 18; TEMP 98.3; O2SAT 100
[2024-03-11 20:01] LABS: BASOPHILS # (AUTO) 0.1 K/uL (0.0-0.2); BASOPHILS % (AUTO) 0.6 % (0.0-2.0); EOSINOPHILS % (AUTO) 0.3 % (0.0-4.0); HEMATOCRIT 39.1 % (36-48); HEMOGLOBIN 12.9 g/dL (12.0-16.0); LYMPHOCYTES % (AUTO) 15.8 % (20.5-51.5); MEAN CORPUSCULAR HEMOGLOBIN 29 pg (27-31); MEAN CORPUSCULAR HGB CONC 33 % (32-36); MEAN CORPUSCULAR VOLUME 88 fL (79.0-98.0); MONOCYTES # (AUTO) 0.9 K/uL (0.0-1.0); NEUTROPHILS # (AUTO) 9.9 K/uL (1.8-7.7); NEUTROPHILS % (AUTO) 76.3 % (40.0-70.0); PLATELET COUNT (AUTO) 233 K/uL (130-430); RED BLOOD CELL COUNT(AUTO) 4.42 MIL/uL (4.2-6.2); RED CELL DISTRIBUTION WIDTH 16.2 % (9.0-15.0)
[2024-03-11 20:15] LABS: ALBUMIN 3.9 g/dL (3.4-4.8); BILIRUBIN,DIRECT 0.1 mg/dL (0.0-0.3); CALCIUM 9.2 mg/dL (8.4-11.0); CREATININE 0.78 mg/dL (0.55-1.30); POTASSIUM 3.2 mmol/L (3.5-5.1); TOTAL BILIRUBIN 0.4 mg/dL (0.0-1.0); TOTAL PROTEIN, SERUM 7.6 g/dL (6.4-8.3)
[2024-03-11 21:45] VITALS: BP_SYST 135; PULSE 99; RESP 18; TEMP 98.3; O2SAT 99
== END 2024-03-11 21:45 | disposition home or self-care (01) ==
LOC: SED 18:03
DX: R51.9 Headache, unspecified (principal); R53.1 Weakness; R19.7 Diarrhea, unspecified; Z88.0 Allergy status to penicillin; Z79.899 Other long term (current) drug therapy; Z79.2 Long term (current) use of antibiotics
CPT/HCPCS: 36415; 70450-TC; 80048; 80076; 85025; 99284

== ENCOUNTER 2024-03-16 01:24 | Emergency (ER) | payer MEDICAID ==
[~2024-03-16] VITALS: Ht 167.6 cm; Wt 104.3 kg
[2024-03-16 01:32] VITALS: BP_SYST 131; PULSE 69; RESP 18; TEMP 96.6; O2SAT 97
[2024-03-16 03:27] LABS: COVID19 ANTIGEN SOFIA FIA NEGATIVE (NEGATIVE)
[2024-03-16 03:30] LABS: INFLUENZA TYPE A Negative (NEGATIVE); INFLUENZA TYPE B NEGATIVE (NEGATIVE)
== END 2024-03-16 03:44 | disposition left against medical advice (07) ==
LOC: SED 01:24
DX: R05.9 Cough, unspecified (principal); R51.9 Headache, unspecified; J02.9 Acute pharyngitis, unspecified; M79.10 Myalgia, unspecified site; R09.89 Other specified symptoms and signs involving the circulatory and respiratory systems; Z20.822 Contact with and (suspected) exposure to COVID-19; Z53.21 Procedure and treatment not carried out due to patient leaving prior to being seen by health care provider
CPT/HCPCS: 36415; 71045